=== PATIENT | female | born 1955 | race Caucasian/White ===

== ENCOUNTER 2025-04-13 03:07 | Emergency (ER) | payer MEDICARE ==
[~2025-04-13] VITALS: Ht 172.7 cm; Wt 67.3 kg
[2025-04-13 03:17] VITALS: TEMP 97.7
[2025-04-13] MEDS: ONDANSETRON 4 MG TABLET PO ONE (03:37)
[2025-04-13 03:50] LABS: PLATELET COUNT (AUTO) 211 K/uL (150-450); RED BLOOD CELL COUNT(AUTO) 4.58 MIL/uL (4.00-5.20); RED CELL DISTRIBUTION WIDTH 13.3 % (11.5-14.5); WHITE BLOOD COUNT (AUTO) 17.5 K/uL (4.5-11.0)
[2025-04-13 03:53] LABS: CALCIUM, TOTAL 9.4 mg/dL (8.8-10.5); CREATININE 1.61 mg/dL (0.60-1.30); GLOMERULAR FILTR. RATE CALC 32.0 mL/min (>60); GLUCOSE,RANDOM 375.0 mg/dL (70-110); SODIUM SERUM 135.0 mmol/L (136-145); UREA NITROGEN, BLOOD 25.0 mg/dL (7-18)
[2025-04-13 03:58] LABS: ASPARTATE AMINOTRANSFERASE 36.0 U/L (15-37); TOTAL PROTEIN, SERUM 8.1 g/dL (6.4-8.2)
[2025-04-13] MEDS: PANTOPRAZOLE SODIUM 40 MG/VIAL IVP ONE (04:31)
[2025-04-13] MEDS: METOCLOPRAMIDE HCL 5 MG/ML 2 ML VIAL IVP ONE (04:31)
[2025-04-13] MEDS: SODIUM CHLORIDE 0.9% 1,000 ML IV ONE (04:31)
[2025-04-13] MEDS: INSULIN LISPRO 100 UNITS/ML SQ ONE ×2 (04:44→04:45)
[2025-04-13 06:08] VITALS: BP 177/115; PULSE 104; RESP 16; O2SAT 98
[2025-04-13 06:19] LABS: TROPONIN I-HIGH SENSITIVITY 24 ng/L (<51)
== END 2025-04-13 06:45 | disposition home or self-care (01) ==
LOC: EMS 03:10
DX: E11.65 Type 2 diabetes mellitus with hyperglycemia (principal); R11.2 Nausea with vomiting, unspecified; Z79.4 Long term (current) use of insulin; Z76.0 Encounter for issue of repeat prescription
CPT/HCPCS: 99284; 96374; 96361; 96375; 80048; 80076; 82009; 82962; 84484; 85025; 36415; 93005; J2765; Q0162; J2470; J7030; 96372; J1815